=== PATIENT | female | born 1995 | race Caucasian/White ===

== ENCOUNTER → 2019-02-13 12:44 | Outpatient (CLI) | payer OTHER, SELFPAY ==
--- NOTE | 2019-02-13 12:45 | US_ITS ---
PROCEDURE: US OB /MATERNAL DETAIL CLINICAL INDICATION: us ob complete Complete OB ultrasound with anatomy exam COMPARISON: No exams were available for comparison FINDINGS: Single viable intrauterine gestation. Cephalic position. Placenta: Posteriorplacenta grade 1. There is average amount fluid. The cervix appears satisfactory. Closed and measuring 5 cm in length. Complete survey performed and was unremarkable on the submitted images as in PACS. No discrete anomalies identified on survey imaging by technologist. Active fetus. Three-vessel cord with satisfactory umbilical cord insertion. 4- chamber heart noted. Survey of brain & ventricles Unremarkable. Face and neck survey unremarkable. Diaphragm and chest views unremarkable. Abdomen: Both kidneys noted and unremarkable. Stomach noted and satisfactory. Spine: Survey of the spine satisfactory with no anomalies identified nor imaged. Both arms and legs noted. Amniotic Fluid: Adequate. Maternal adnexa: No significant findings. Measurements: Average ultrasound age 21 week. Gestational Age 21 week Estimated due date by ultrasound age 0206/26/2019. Estimated weight 374.4 ggrams. BPD = 21 weeks 6 days OFD = 20 weeks 6 days HC = 20 weeks 3 days AC = 20 weeks 6 days FL = 20 weeks 6 days Growth Percentile= 47 percent% Heart Rate = 138 bpm Cerebellum = 21 weeks 1 day Humerus = 20 weeks 6 days HC/AC is 1.15 CI is 0.85 FL/BPD is 0.66 FL/AC is 0.22 IMPRESSION: Single live intrauterine gestation which is in cephalic presentation with an average ultrasound age of 21 weeks. All parameters correlate with no obvious anomalies. Please see above for detail Dictated by: Justin Dial MD 02/13/2019 18:26 Electronically signed by Justin Dial MD in [place] 02/13/2019 18:26
== END ==
PROVIDERS: PCP General Practice; Visit Provider Nurse Practitioner Obstetrics & Gynecology
DX: Z36.0 Encounter for antenatal screening for chromosomal anomalies (principal)
CPT/HCPCS: 76811

== ENCOUNTER → 2019-04-10 09:07 | Outpatient (CLI) | payer OTHER, SELFPAY ==
[2019-04-10 11:00] LABS: Glucose,Fasting 77 mg/dL (60-105)
[2019-04-10 12:03] LABS: Glucose 1 Hour 131 mg/dL (74-106)
== END ==
PROVIDERS: Visit Provider Nurse Practitioner Obstetrics & Gynecology
DX: Z34.90 Encounter for supervision of normal pregnancy, unspecified, unspecified trimester (principal)
CPT/HCPCS: 36415; 82951

== ENCOUNTER → 2019-05-29 16:30 | Outpatient (CLI) | payer OTHER, SELFPAY | LOC: LAB 16:30 → LAB.DROPOF 05-30 07:58 | PROVIDERS: Visit Provider Nurse Practitioner Obstetrics & Gynecology | DX: Z34.90 Encounter for supervision of normal pregnancy, unspecified, unspecified trimester (principal) | CPT/HCPCS: 86403 ==

== ENCOUNTER → 2019-06-01 09:15 | Outpatient (CLI) | payer OTHER, SELFPAY ==
--- NOTE | 2019-06-01 09:15 | US_ITS ---
PROCEDURE: US OB FOLLOW UP CLINICAL INDICATION: US OB BPP Growth- Breech Evaluate position the COMPARISON: US OB /MATERNAL DETAIL from 02/13/2019 FINDINGS: There is a single live fetus present which is in breech presentation. Cervix appears closed and measures 3 cm transabdominal. The placenta is posterior and grade 2. No previa or abruption. Amniotic fluid index is normal at 15 cm. Biophysical profile is normal 8 of 8. The Average ultrasound age is 36 weeks 1 day. BPD 36 weeks 1 day, OFD 36 weeks 2 days, HC 35 weeks 5 days, AC 36 weeks 4 days, FL 36 weeks 1 day. Heart rate is 127 beats per minute. Estimated weight is 2882 g which is 54th percentile. All parameters correlate. Three-vessel cord is noted. IMPRESSION: Live IUP at 36 weeks 1 day in breech presentation with normal amniotic fluid volume. Biophysical profile 8 of 8. Please see above for detail Dictated by: Justin Dial MD 06/01/2019 13:27 Electronically signed by Justin Dial MD in [place] 06/01/2019 13:27
== END ==
PROVIDERS: PCP General Practice; Visit Provider Nurse Practitioner Obstetrics & Gynecology
DX: O32.1XX0 Maternal care for breech presentation, not applicable or unspecified (principal)
CPT/HCPCS: 76816; 76819

== ENCOUNTER 2019-06-25 04:21 | Inpatient (IN) ==
[2019-06-25 05:09] LABS: Basophils % 0.3 % (0.1-2.0); Eosinophils # 0.2 K/mm3 (0.0-0.4); Eosinophils % 2.4 % (0.1-12.0); Hematocrit 37.9 % (37.0-47.0); Hemoglobin 13.1 g/dL (12.2-16.2); Lymphocytes # 1.9 K/mm3 (0.7-4.5); Lymphocytes % 20.5 % (10-50); Mean Corpuscular HGB Conc 34.5 g/dL (31.8-35.4); Mean Corpuscular Volume 89.6 fl (81-99); Mean Platelet Volume 9.7 fl (7.4-10.4); Monocytes # 0.7 K/mm3 (0.1-1.0); Neutrophils # 6.5 K/mm3 (1.8-7.8); Neutrophils % 69.7 % (37.0-80.0); Platelet Count 203 K/mm3 (142-424); Red Blood Count 4.23 M/mm3 (4.20-5.40); White Blood Count 9.3 K/mm3 (4.8-10.8)
[2019-06-25 05:12] LABS: Microscopic, Urine URINE MICROSCOPIC (MICROSCOPIC)
[2019-06-25 05:15] LABS: Appearance,Urine CLOUDY (Clear); Bilirubin,Urine Negative (Negative); Blood, Urine 3+ (Negative); Color,Urine YELLOW (Yellow); Glucose,Urine (UA) Negative (Negative); Ketones,Urine Negative (Negative); Leukocyte Esterase,Urine Negative (Negative); Protein,Urine TRACE (Negative); Urobilinogen,Urine 0.2 EU/dl (0.2)
[2019-06-25 05:18] LABS: Calcium 9.3 mg/dL (8.5-10.1)
[2019-06-25 05:19] LABS: RBC,Urine 50-100 #/hpf (0-3); Squamous Epithelial Cell,Urine 20-50 #/hpf (0-5); WBC,Urine Occasional #/hpf (0-3)
[2019-06-25 05:21] LABS: Amphetamine/Metha Screen,Urine Negative ng/mL (<1000); Barbiturates Screen,Urine Negative ng/mL (<200); Benzodiazepines Screen,Urine Negative ng/mL (<200); Cannabinoid Screen,Urine Negative ng/mL (<50); Cocaine Screen,Urine Negative ng/mL (<300); Methadone Screen,Urine Negative ng/mL (<300); Opiate Screen,Urine Negative ng/mL (<300); Phencyclidine Screen,Urine Negative ng/mL (<25)
--- NOTE | 2019-06-25 08:19 | Operative Note ---
Date of procedure: 06/25/19 Pre-op Diagnosis:: Term , breech presentation, spontaneous rupture of membranes, thin meconium, Post-op Diagnosis:: Term , breech presentation, spontaneous rupture of membranes, small pedunculated fibroid Procedure performed:: Primary lower segment transverse section and removal of small pedunculated fibroid Surgeon:: Jaret Canseco MD Emergency Vehicle Driver(s):: Jaquelin Pereira AIRCRAFT DELIVERY CHECKER:: Christopher Groves Anesthesia: spinal Estimated blood loss (mL): 600 Clinical Note:: She is a 24-year-old 1 para 0 at 39 and 4 weeks gestational age. She was scheduled for a section this morning for breech presentation. She spontaneously ruptured her membranes at home around 330 this morning and then came into labor and delivery. She was having contractions and was still closed. She had thin meconium. Operative findings:: She delivered a liveborn female child at 7:45 AM on the morning of June 25, 2019. The baby had Apgars of 8 at 1 minute and 9 at 5 minutes. Was in the patricio breech presentation. There was thin meconium. She also had a small 5 mm pedunculated fibroid just below the fundus of the uterus slightly to the right side. Operative note:: She was taken to the operating room where spinal anesthesia was found be adequate. She was prepped and draped in normal sterile fashion in the supine position with a leftward tilt. A Roberts catheter was in the bladder. A Pfannenstiel skin incision was made with knife then carried through to the underlying layer of fascia with cautery. The fascia was opened in the midline with cautery and extended laterally using Massey scissors. [place] clamps were applied to the superior aspect of the fascial incision which was tented up and the underlying rectus muscles dissected off using cautery. The Jonnathan clamps were then applied to the inferior aspect of the fascial incision which in a similar fashion was tented up and the underlying rectus muscles dissected off using cautery. The rectus muscles were then in the midline, the peritoneum identified, and entered sharply with Metzenbaum scissors. This incision was then extended superiorly and inferiorly with cautery. We had good visualization of the bladder inferiorly. The bladder peritoneum was then opened in the midline and extended laterally using Metzenbaum scissors. A bladder flap was created digitally. Transverse incision was made through the uterine muscle to the amnion. This incision was then extended laterally using fingers traction. The amnion was entered sharply with knife. There was clear amniotic fluid. The infant's breech was then delivered atraumatically. This was followed by the shoulders and the rest of the 's body atraumatically. The oropharynx and nasopharynx were DeLee suctioned. The infant was then handed off to Dr. Mayfield who assigned Apgars of 8 at 1 minute and 9 at 5 minutes. We then obtained cord blood as well as cord pH. Using gentle traction on the cord and countertraction on the fundus I was able to easily deliver the placenta intact. It had a normal three-vessel cord. The uterus was then cleared of clots and debris . The uterine incision was then closed using running 0 Vicryl suture in a locked fashion. A second layer of the same suture was used to imbricate the first layer. The bladder peritoneum was then closed using running 2-0 Vicryl suture in a locked fashion. The gutters and cul-de-sac were then cleared of clots and debris . Once again hemostasis was assured. It was noted that there was a small pedunculated fibroid on the fundus of the uterus slightly to the right side and using cautery I was able to remove this easily across the base. This was sent to pathology. The uterus was then returned to the abdominal cavity. Once again hemostasis was assured. The peritoneum was grasped with Rachel clamps and closed using running 2-0 Vicryl suture. The rectus muscles were then reapproximated using running 0 Vicryl suture. The fascia was closed using running #1 Vicryl suture. The subcutaneous tissues were then irrigated with warm water followed by closure Galo's fascia using running 2-0 Monocryl suture. The skin was closed with duke. I then cleaned the skin with Hibiclens. Sterile dressings were applied. She tolerated the procedure well and was taken to the recovery room in excellent condition. All sponges minute and needle counts were correct. Estimate a blood loss was approximately 600 mL. Condition: stable Disposition: PACU Specimens:: Small pedunculated fibroid Complications:: None
--- NOTE | 2019-06-25 08:22 | Progress Note ---
[facility] [place] Anesthesia Checklist - Structural Data Admitted From: Inpatient Planned Operative Procedure/s: c/section Consent for Planned Operative Procedure(s) Verified: Yes - Airway Assessment C-Spine Mobility Assessed: Yes TMJ Mobility Assessed: Yes Dentition: Good Dentition - Neurological Assessment Level of Consciousness: Awake, Alert, Appropriate - Anesthesia Plan Anesthesia Risk discussed: Yes Anesthesia Plan: Verified ASA Class: II Anesthesia Type: Spinal [facility] [place] History I have reviewed the patient's past medical history: Yes *Have you ever received a pneumonia vaccine?: No *Have you received a flu vaccine this season?: Yes Anesthesia experience/problems:: none Other Surgeries: Yes: No Previous Surgery. No: Amputation: No Fractures: No - *Social History Smoking Status: Never smoker Alcohol Intake: never Alcohol Intake Frequency:: holidays/special occasions only Substance Use Type: denies use *Occupational Status:: employed *Travel in the last 8 weeks: None Family Hx:: No significant family history Para: 0
--- NOTE | 2019-06-25 08:22 | History & Physical Report ---
OB - H&P: HPI Antepartum - History of Present Illness Chief complaint: Breech presentation, term, spontaneous rupture of membranes History of present illness: She is a 24-year-old 1 now para 0 at 39+4 weeks gestational age. She is known to be breech presentation. She ruptured membranes this morning about 330 and came into labor and delivery. She has been scheduled for a primary section this morning. - History of Present Criteria for establishing EDC:: LMP confirmed by 1st trimester US care: good care Ultrasounds: normal 1st trimester US, normal mid trimester US Obstetrical complications: malpresentation Medical complications: none - Labs Blood type: A (+) positive Rubella: immune RPR/VDRL: nonreactive GBS status: negative HBsAG: negative HMH History I have reviewed the patient's past medical history: Yes *Have you ever received a pneumonia vaccine?: No *Have you received a flu vaccine this season?: Yes Other Surgeries: Yes: No Previous Surgery. No: Amputation: No Fractures: No - *Social History Smoking Status: Never smoker Alcohol Intake: never Alcohol Intake Frequency:: holidays/special occasions only Substance Use Type: denies use *Occupational Status:: employed *Travel in the last 8 weeks: None Family Hx:: No significant family history Para: 0 Review of Systems - Review of Systems Review of systems:: pertinent systems reviewed and negative unless documented below Meds Home Medications Medication Instructions Recorded Confirmed Type loratadine 10 mg tablet 10 mg PO DAILY 01/17/19 06/25/19 History vits 75-iron 28 mg-folic 1 tab PO DAILY each 01/17/19 06/25/19 History acid 800 mcg-omega-3 oral combo pack RX: Ferrous Sulfate 325 mg PO DAILY 06/25/19 06/25/19 History Allergies Allergy/AdvReac Type Severity Reaction Status Date / Time Sulfa (Sulfonamide Allergy Unknown Verified 06/18/19 10:50 Antibiotics) OB - H&P: Exam - Physical Exam Vital signs: Temp Pulse Resp BP Pulse Ox 98.7 F 103 H 18 136/90 97 06/25/19 04:24 06/25/19 04:24 06/25/19 04:24 06/25/19 04:24 06/25/19 04:24 - Constitutional no acute distress - Routine HEENT Exam Head: Present: normocephalic Eye: Present: EOMI, PERRL ENT: Present: mucous membranes moist - Routine Neck Exam Present: supple, full ROM - Routine Respiratory Exam Absent: accessory muscle use (good air entry bilaterally), respiratory distress, wheezes, crackles - Routine Cardiovascular Exam Present: RRR. Absent: murmur - Routine Abdominal Exam Present: soft, normoactive bowel sounds. Absent: tenderness, distended, guarding - Routine Rectal Exam Patient deferred: visual exam, digital exam - Routine Exam Patient deferred: external exam, groin exam, perineal exam - Routine Extremities Exam Present: full ROM. Absent: cyanosis, edema - Routine Skin Exam Present: intact. Absent: cyanosis - Routine Neurological Exam Present: alert, oriented X3 - Routine Psychiatric Exam Present: normal affect OB - Results - Labs Labs: Short CBC 06/25/19 Range/Units 05:00 WBC 9.3 (4.8-10.8) K/mm3 Hgb 13.1 (12.2-16.2) g/dL Hct 37.9 (37.0-47.0) % Plt Count 203 (142-424) K/mm3 BMP 06/25/19 05:00 Sodium 138 Potassium 4.0 Chloride 103 Carbon Dioxide 21 BUN 7 Creatinine 0.78 Glucose 85 Calcium 9.3 Urine 06/25/19 Range/Units 04:30 Urine Color Yellow (Yellow) Urine Appearance Cloudy (Clear) Urine pH 7.0 (5.0-8.5) Ur Specific [place] 1.020 (1.005-1.030) Urine Protein Trace (Negative) Urine Glucose (UA) Negative (Negative) OB - A/P Antepartum (1) Breech presentation delivered Current visit: Yes Status: Acute (2) SROM (spontaneous rupture of membranes) Current visit: Yes Status: Acute - Additional Plan Planning to breastfeed?: No Plan: other Additional Information:: She is here with spontaneous rupture of membranes and a few contractions. She was scheduled for a section this morning. She will have a primary lower segment transverse section.
--- NOTE | 2019-06-25 08:23 | Progress Note ---
[facility] Anesthesia Record Part I Intake, IV Amount: 1,500 Estimated blood loss (mL): 600 Urine output (mL): 750 Blood Pressure: 119/81 SaO2: 99 Pulse Rate: 108 Respiratory Rate: 12 Temperature: 97.7 F Patient is:: Awake, Stable Stable to PACU at:: 08:15
--- NOTE | 2019-06-25 09:26 | Progress Note ---
[facility] Anesthesia Record Part II Discharge Time: 08:45 Destination: Obstetric PACU nurse assessment reviewed?: Yes Patient Condition:: Good Anesthesia Complications:: None Swallowing reflex intact?: Yes Cyanosis?: No Blood Pressure: 134/64 Pulse Rate: 103 Temperature: 97.7 F Mental Status: Alert & Oriented Pain level:: 0 Nausea and/or vomitting:: None Intake, IV Amount: 1,600
[2019-06-26 04:15] VITALS: BP 144/94
[2019-06-26 06:54] LABS: Hematocrit 35.6 % (37.0-47.0); Hemoglobin 11.6 g/dL (12.2-16.2)
--- NOTE | 2019-06-26 07:32 | Pharmacy Consult Notes ---
[facility] Pharmacy VTE Monitoring - Patient Demographics Admission date: 06/25/19 Report Date: 06/26/19 Time: 07:32 Allergies/Adverse Reactions: Patient Allergies Sulfa (Sulfonamide Antibiotics) Allergy (Unknown, Verified 06/25/19 12:18) Height: 1.6 m Weight: 75.75 kg Patient Problems: Current Active Problems Breech presentation delivered (Acute) SROM (spontaneous rupture of membranes) (Acute) - VTE Risk Labs: VTE Related Lab Results Hgb 11.6 g/dL (12.2-16.2) L 06/26/19 06:35 Hct 35.6 % (37.0-47.0) L 06/26/19 06:35 Plt Count 203 K/mm3 (142-424) 06/25/19 05:00 BUN 7 mg/dL (7-18) 06/25/19 05:00 Creatinine 0.78 mg/dL (0.55-1.02) 06/25/19 05:00 Estimated Creat Clear 132 mL/min (50-200) 06/25/19 05:00 - Prophylaxis VTE Prophylaxis Ordered?: Yes Types of VTE Prophylaxis: IPCS Thigh High Location of Applied Device: Bilateral Lower Extremeties - VTE Diagnosis Confirmed Treatment or plan recommended: Continue Current Treatment
--- NOTE | 2019-06-26 08:55 | Progress Note ---
Internal Medicine - PN: Subj *Date: 06/26/19 *Time: 08:53 Interval history: She continues to do well this morning. She is eating and drinking and ambulating. She is bottlefeeding. Her lochia is normal. Her pain is well controlled. Exam Vital signs and Labs for Last 24 Hours: Temp Pulse Resp BP Pulse Ox 98.1 F 83 20 144/94 H 98 06/26/19 04:00 06/26/19 04:00 06/26/19 04:00 06/26/19 04:00 06/26/19 04:00 Laboratory Results - last 24 hr 06/26/19 06:35: Hgb 11.6 L, Hct 35.6 L I & O for Last 24 hours: Intake & Output 06/23/19 06/24/19 06/25/19 06/26/19 11:59 11:59 11:59 11:59 Intake Total 3100 / 3100 Output Total 350 / 350 1000 / 1000 Balance 2750 / 2750 -1000 / -1000 Weight 167 lb - Constitutional no acute distress Assessment and Plan (1) Breech presentation delivered Current visit: Yes Status: Acute Category: Medical Code(s): O32.1XX0 - Maternal care for breech presentation, not applicable or unspecified (2) SROM (spontaneous rupture of membranes) Current visit: Yes Status: Acute Category: Medical - Assessment and plan all Dx Assessment and Plan for all problems:: She is doing well 1 day postoperatively from a for breech presentation. We will plan to send her home in 48 hours.
--- NOTE | 2019-06-27 09:22 | Progress Note ---
Internal Medicine - PN: Subj *Date: 06/27/19 *Time: 09:21 Interval history: She is doing very well this morning. Her pain is well controlled. Her lochia is normal. Exam Vital signs and Labs for Last 24 Hours: Temp Pulse Resp BP Pulse Ox 98.1 F 83 20 144/94 H 98 06/26/19 04:00 06/26/19 04:00 06/26/19 04:00 06/26/19 04:00 06/26/19 04:00 I & O for Last 24 hours: Intake & Output 06/24/19 06/25/19 06/26/19 06/27/19 11:59 11:59 11:59 11:59 Intake Total 3100 / 3100 Output Total 350 / 350 1000 / 1000 Balance 2750 / 2750 -1000 / -1000 Weight 167 lb - Constitutional no acute distress - *Routine HEENT Exam Head: Present: normocephalic Eye: Present: EOMI, PERRL ENT: Present: mucous membranes moist Assessment and Plan (1) Breech presentation delivered Current visit: Yes Status: Acute Category: Medical Code(s): O32.1XX0 - Maternal care for breech presentation, not applicable or unspecified (2) SROM (spontaneous rupture of membranes) Current visit: Yes Status: Acute Category: Medical - Assessment and plan all Dx Assessment and Plan for all problems:: She is doing very well. We will plan to send her home tomorrow.
[2019-06-27 23:59] LABS: Basophils % 0.4 % (0.1-2.0); Eosinophils # 0.4 K/mm3 (0.0-0.4); Hematocrit 37.4 % (37.0-47.0); Hemoglobin 12.7 g/dL (12.2-16.2); Lymphocytes # 2.7 K/mm3 (0.7-4.5); Lymphocytes % 30.6 % (10-50); Mean Corpuscular HGB Conc 33.9 g/dL (31.8-35.4); Mean Corpuscular Volume 90.5 fl (81-99); Mean Platelet Volume 8.9 fl (7.4-10.4); Monocytes # 0.5 K/mm3 (0.1-1.0); Monocytes % 5.6 % (1.7-9.3); Neutrophils # 5.2 K/mm3 (1.8-7.8); Neutrophils % 58.5 % (37.0-80.0); Platelet Count 252 K/mm3 (142-424); Red Blood Count 4.13 M/mm3 (4.20-5.40); Red Cell Distribution Width 13.8 % (11.5-17.5); White Blood Count 8.8 K/mm3 (4.8-10.8)
[2019-06-28 00:12] LABS: Activated Partial Thrombo Time 31.4 seconds (23.6-34.0); INR 0.87 (0.9-1.1); Prothrombin Time 9.1 seconds (9.4-11.8)
[2019-06-28 00:15] LABS: Anion Gap 12.8 mEq/L (5-15); Calcium 8.9 mg/dL (8.5-10.1); Uric Acid 4.4 mg/dL (2.6-7.2)
--- NOTE | 2019-06-28 09:05 | Discharge Summary ---
General - General Admission date:: 06/25/19 Discharge date: 06/28/19 HPI HPI: She is a 24-year-old 1 now para 1 who is 39 and 4 weeks gestational age. She had a breech presentation at term and as result of that was offered primary lower segment transverse section. Hospital Course Hospital Course: On June 25, 2019 she underwent a primary lower segment transverse section and delivered a liveborn female child at 7:45 AM. The baby weighed 7 pounds 10 ounces and had Apgars of 8 at 1 minute and 9 at 5 minutes. She has done well postoperatively and has remained afebrile with her hospitalization. On the evening prior to discharge she did have a spike in her blood pressure and we have started her on labetalol. On the morning of discharge her blood pressure has stabilized and she denies any headache, scotomata or epigastric pain. Her [facility] blood work was all normal. Hemoglobin has stabilized. She is discharged home to follow-up with me in approximately a week's time. She will continue with her vitamins and iron. She will continue with her labetalol 200 mg twice daily. She is given a prescription for Percocet 5/325 number 20 tablets. She is bottlefeeding. She has a Rh+ blood, she is rubella immune and was group B streptococcus negative. Her spinning mule tender Dr. Mayfield. Rhogam Administration: Not Indicated Objective Vital signs: Temp Pulse Resp BP Pulse Ox 98.1 F 83 20 144/94 H 98 06/26/19 04:00 06/26/19 04:00 06/26/19 04:00 06/26/19 04:00 06/26/19 04:00 no acute distress Results Labs on day of discharge: Labs from last 24 hours 06/27/19 06/27/19 06/27/19 23:50 23:50 23:50 WBC 8.8 RBC 4.13 L Hgb 12.7 Hct 37.4 MCV 90.5 MCH 30.7 MCHC 33.9 RDW 13.8 Plt Count 252 MPV 8.9 Neut % (Auto) 58.5 Lymph % (Auto) 30.6 Burke % (Auto) 5.6 Eos % (Auto) 5.0 Baso % (Auto) 0.4 Neut # (Auto) 5.2 Lymph # (Auto) 2.7 Burke # (Auto) 0.5 Eos # (Auto) 0.4 Baso # (Auto) 0.0 PT 9.1 L INR 0.87 L APTT 31.4 Fibrinogen 484 D-Dimer 689 H* Sodium 139 Potassium 3.8 Chloride 103 Carbon Dioxide 27 D Anion Gap 12.8 BUN 8 Creatinine 0.68 Estimated Creat Clear 151 Estimated GFR 105 Est GFR ( Amer) 128 Glucose 86 Uric Acid 4.4 Calcium 8.9 AST 25 ALT 18 DS: Diagnosis - Discharge Diagnosis (1) Breech presentation delivered Status: Acute (2) SROM (spontaneous rupture of membranes) Status: Acute (3) induced hypertension, delivered, with complication Status: Acute Discharge Plan - Patient Discharge Instructions ACTIVITY: No heavy lifting DIET: continue same diet Patient Instructions: DI for Hemorrhage, DI for , DI for Depression - Follow up Plan Follow up with: Jaret Canseco MD [Staff Physician] - 07/09/19 1:30 pm Disposition: Home, Self-Halfway Medications: Home Medications Medication Instructions Recorded Confirmed Type loratadine 10 mg tablet 10 mg PO DAILY 01/17/19 06/25/19 History vits 75-iron 28 mg-folic 1 tab PO DAILY each 01/17/19 06/25/19 History acid 800 mcg-omega-3 oral combo pack Ferrous Sulfate 325 mg PO DAILY 06/25/19 06/25/19 History Labetalol HCl [Normodyne 100mg 200 mg PO BID #60 tab 06/28/19 Rx tablet] Oxycodone HCl/Acetaminophen 1 - 2 tab PO Q4-6H PRN #20 tablet 06/28/19 Rx [Percocet 5/325mg tablet] Prescriptions/Medication Reconciliation: New Oxycodone HCl/Acetaminophen [Percocet 5/325mg tablet] 1 - 2 tab PO Q4-6H PRN #20 tablet PRN Reason: Severe Pain Labetalol HCl [Normodyne 100mg tablet] 200 mg PO BID #60 tab Continued vits 75-iron 28 mg-folic acid 800 mcg-omega-3 oral combo pack 1 tab PO DAILY each loratadine 10 mg tablet 10 mg PO DAILY Ferrous Sulfate 325 mg PO DAILY - Problem Reconciliation Problems Reviewed?: Yes
== END 2019-06-28 16:15 | disposition home or self-care (01) | DRG 788 ==
LOC: OB 04:21
PROVIDERS: ADMIT Nurse Practitioner Obstetrics & Gynecology; ATTEND Nurse Practitioner Obstetrics & Gynecology

== ENCOUNTER → 2020-09-18 08:40 | Outpatient (CLI) | payer OTHER, SELFPAY ==
--- NOTE | 2020-09-18 08:40 | US_ITS ---
PROCEDURE: US THYROID CLINICAL INDICATION: thyromegly COMPARISON: No exams were available for comparison FINDINGS: Right lobe: 4 x 1 x 1.9 cm. Homogeneous echogenicity Left lobe: 4.2 x 1.1 x 1.8 cm. Homogeneous echogenicity Isthmus: 2 mm in thickness Additional findings: No nodules apparent. IMPRESSION: Unremarkable thyroid ultrasound Dictated by: Justin Dial MD 09/18/2020 10:24 Justin Dial MD in [place] 09/18/2020 10:24
== END ==
PROVIDERS: PCP Internal Medicine; Visit Provider Otolaryngology
DX: E01.0 Iodine-deficiency related diffuse (endemic) goiter (principal)
CPT/HCPCS: 76536

== ENCOUNTER → 2020-09-18 08:56 | Outpatient (CLI) | payer OTHER, SELFPAY ==
[2020-09-18 10:15] LABS: Free T4 (Free Thyroxine) 1.18 ng/dl (0.78-2.19)
[2020-09-18 10:29] LABS: Thyroid Stimulating Hormone 1.56 uIU/mL (0.465-4.68)
[2020-09-19 10:13] LABS: Thyroid Peroxidase Antibodies <9 IU/mL (0-34)
[2020-09-21 06:35] LABS: Thyroid Stimulating Immunoglob <0.10 IU/L (0.00-0.55)
== END ==
PROVIDERS: Visit Provider Otolaryngology
DX: E01.0 Iodine-deficiency related diffuse (endemic) goiter (principal)
CPT/HCPCS: 36415; 84439; 84443; 84445; 86376

== ENCOUNTER → 2022-12-06 10:36 | Outpatient (CLI) | payer OTHER, SELFPAY ==
--- NOTE | 2022-12-06 10:36 | US_ITS ---
PROCEDURE: US TRANSVAGINAL CLINICAL INDICATION: irregular periods/ menstrual cycles COMPARISON: No exams were available for comparison FINDINGS: Transvaginal sonographic images of the pelvis were obtained. UTERUS: 9cm x 5cmx 4cm with a combined endometrial thickness of 9.7mm. There are 2 fibroids in the anterior uterus. Fibroid 1 measures 0.8 cm x 0.8 cmx 0.8 cm Fibroid 2 measures 1.4 cm x 1.4 cm x 1.4 cm LEFT OVARY: 5hvl2xhn2.1cm with a volume of 12.5ml.The left ovary has a polycystic appearance. RIGHT OVARY: 2.9 cmx 4cmx2.8 cm. The right ovary has a polycystic appearance. There is a 2.0 cm x 2.3 cm x 1.4 cm follicle. Both ovaries are seen and appear normal. Doppler flow to both ovaries are seen. There is trace fluid in the cul-de-sac. IMPRESSION: 1. Anteverted uterus that is normal in shape and size. There is a scar. 2. Within the anterior myometrium there are 2 fibroids measuring 0.8 cm and 1.4 cm. The larger fibroid appears more submucosal. 3. Both ovaries have a polycystic appearance. 4. At the vaginal vault there is a Orlin's duct cyst measuring 0.8 cm x 2.0 cm by 1.9 cm 5. There is trace fluid in the cul-de-sac. Dictated by: Jaret Canseco MD 12/06/2022 16:04 Jaret Canseco MD in [place] 12/06/2022 16:04
== END ==
PROVIDERS: PCP Nurse Practitioner Obstetrics & Gynecology; Visit Provider Nurse Practitioner Obstetrics & Gynecology
DX: N92.6 Irregular menstruation, unspecified (principal)
CPT/HCPCS: 76830

== ENCOUNTER 2023-08-08 11:33 | Outpatient (CLI) | payer OTHER, SELFPAY ==
[2023-08-08 13:29] LABS: HCG,Quantitative 81 mIU/ml (0-5.42)
[2023-08-09 08:56] LABS: Progesterone 18.5 ng/mL (.)
== END 2023-08-08 23:59 ==
LOC: LAB 11:34
PROVIDERS: PCP Nurse Practitioner Family; Visit Provider Nurse Practitioner Obstetrics & Gynecology
DX: N92.6 Irregular menstruation, unspecified (principal)
CPT/HCPCS: 36415; 84144; 84702

== ENCOUNTER 2023-08-10 09:28 | Outpatient (CLI) | payer OTHER, SELFPAY ==
[2023-08-10 13:29] LABS: HCG,Quantitative 231 mIU/ml (0-5.42)
== END 2023-08-10 23:59 ==
LOC: LAB 09:28
PROVIDERS: PCP Nurse Practitioner Family; Visit Provider Nurse Practitioner Obstetrics & Gynecology
DX: Z32.00 Encounter for pregnancy test, result unknown (principal)
CPT/HCPCS: 36415; 84702

== ENCOUNTER 2023-08-31 15:26 | Outpatient (CLI) | payer OTHER, SELFPAY ==
[2023-08-31 16:08] LABS: Basophils % 0.5 % (0.1-2.0); Eosinophils # 0.2 K/mm3 (0.0-0.4); Eosinophils % 2.2 % (0.1-12.0); Hemoglobin 11.5 g/dL (12.2-16.2); Lymphocytes # 2.2 K/mm3 (0.7-4.5); Lymphocytes % 24.4 % (10-50); Mean Corpuscular HGB Conc 32.1 g/dL (31.8-35.4); Mean Corpuscular Hemoglobin 28.1 pg (27.0-31.2); Mean Corpuscular Volume 87.5 fl (81-99); Monocytes # 0.5 K/mm3 (0.1-1.0); Monocytes % 5.8 % (1.7-9.3); Neutrophils # 6.2 K/mm3 (1.8-7.8); Neutrophils % 67.1 % (37.0-80.0); Platelet Count 312 K/mm3 (142-424); Red Blood Count 4.11 M/mm3 (4.20-5.40); Red Cell Distribution Width 14.6 % (11.5-17.5); White Blood Count 9.2 K/mm3 (4.8-10.8)
[2023-09-02 10:51] LABS: Rubella Antibodies, IgG 1.95 index (Immune >0.99)
[2023-09-02 11:17] LABS: HIV Screen 4th Generation wRfx Non Reactive (Non Reactive); Rapid Plasma Reagin Ab Titer Non Reactive titer (NonRea<1:1)
[2023-09-06 09:26] LABS: Hepatitis B Surface Antigen Negative; Hepatitis C Antibody Non Reactive
== END 2023-08-31 23:59 | disposition home or self-care (01) ==
LOC: LAB 15:28
PROVIDERS: PCP Nurse Practitioner Family; Visit Provider Nurse Practitioner Obstetrics & Gynecology
DX: O26.891 Other specified pregnancy related conditions, first trimester (principal); Z3A.01 Less than 8 weeks gestation of pregnancy
CPT/HCPCS: 36415; 85025; 86593; 86703; 86762; 86850; 87340; 87380; G0432

== ENCOUNTER 2023-09-16 09:38 | Outpatient (CLI) | payer OTHER, SELFPAY ==
[2023-09-26 19:42] LABS: Pancreatic Elastase, Fecal 316 (>200)
[2023-09-26 21:07] LABS: Fats, Neutral Increased (.); Fats, Total Increased (.)
== END 2023-09-16 23:59 | disposition home or self-care (01) ==
LOC: LAB.DROPOF 09:38
PROVIDERS: PCP Nurse Practitioner Family; Visit Provider Physician Assistant
DX: E74.89 Other specified disorders of carbohydrate metabolism (principal)
CPT/HCPCS: 82656; 82705

== ENCOUNTER 2023-09-28 17:20 | Outpatient (CLI) | payer OTHER, SELFPAY | END 2023-09-28 23:59 | disposition home or self-care (01) | LOC: LAB.DROPOF 17:21 | PROVIDERS: PCP Nurse Practitioner Obstetrics & Gynecology; Visit Provider Nurse Practitioner Obstetrics & Gynecology | DX: O26.891 Other specified pregnancy related conditions, first trimester (principal); Z3A.11 11 weeks gestation of pregnancy | CPT/HCPCS: 87086 ==

== ENCOUNTER 2023-12-01 09:47 | Outpatient (CLI) | payer OTHER, SELFPAY ==
--- NOTE | 2023-12-01 09:47 | US_ITS ---
PROCEDURE: US OB /MATERNAL DETAIL CLINICAL INDICATION: 20 wk + Anatomy Scan COMPARISON: No examinations are available for comparison. FINDINGS: Transabdominal sonographic images of the pelvis were obtained. From her established due date she is . Single viable intrauterine gestation. Breech position. Placenta: Anteriorplacenta grade 1. There is an average amount of fluid. The cervix appears satisfactory. Closed and measuring 3.7 cm. In length. Complete survey performed and was unremarkable on the submitted images as in PACS. No discrete anomalies identified on survey imaging by technologist. Active fetus. Three-vessel cord with satisfactory umbilical cord insertion. 4- chamber heart noted. Situs, aortic arch, LVOT, RVOT, three-vessel view appear normal. Survey of brain & ventricles Unremarkable. Cerebellum, thalamus, choroid plexus, cisterna magna appear normal. Face and neck survey unremarkable. Profile, nasion, lips and nose appeared normal. Diaphragm and chest views unremarkable. Abdomen: Both kidneys noted and unremarkable. Stomach and bladder noted and satisfactory. Spine: Survey of the spine satisfactory with no anomalies identified nor imaged. Cervical, thoracic, lower spine appear normal. Both arms and legs noted. Amniotic Fluid: Adequate. MVP 5.47 cm. Measurements: Average ultrasound age 20weeks 5days. Estimated due date by ultrasound age 1104/14/2024. Estimated weight 364g BPD = 20weeks 3days HC = 21weeks 1day AC = 20weeks 3days FL = 20weeks 6days Growth Percentile= 55 Heart Rate = 152bpm Cerebellum = 20weeks 1day Humerus = 21weeks 5days HC/AC is 1.24 FL/BPD is 0.72 FL/AC is 0.23 IMPRESSION: 1. Viable fetus in the breech presentation with an anterior placenta grade 1. 2. The fluid is within normal limits with an MVP 5.47 cm. 3. Anatomical scan appears normal. 4. biometry is consistent with the dates. 5. There was a slowing of the heart rate at the end of the examination. Dictated by: Jaret Canseco MD 12/01/2023 12:57 Jaret Canseco MD in [place] 12/01/2023 12:57
== END 2023-12-01 23:59 | disposition home or self-care (01) ==
LOC: RAD 09:47
PROVIDERS: PCP Nurse Practitioner Family; Visit Provider Nurse Practitioner Obstetrics & Gynecology
DX: Z36.3 Encounter for antenatal screening for malformations (principal); Z3A.20 20 weeks gestation of pregnancy
CPT/HCPCS: 76811

== ENCOUNTER 2023-12-31 10:50 | Outpatient (CLI) | payer OTHER, SELFPAY ==
[2023-12-31 11:08] LABS: Collection Time,Urine 24 hours; Total Volume,Urine 600 mL (600-1600)
[2023-12-31 11:12] VITALS: BMI 31.8
[2023-12-31 11:20] LABS: Basophils % 0.4 % (0.1-2.0); Eosinophils # 0.2 K/mm3 (0.0-0.4); Eosinophils % 2.4 % (0.1-12.0); Hematocrit 32.7 % (37.0-47.0); Hemoglobin 10.8 g/dL (12.2-16.2); Lymphocytes # 1.8 K/mm3 (0.7-4.5); Lymphocytes % 20.5 % (10-50); Mean Corpuscular Hemoglobin 29.6 pg (27.0-31.2); Mean Corpuscular Volume 89.5 fl (81-99); Mean Platelet Volume 8.7 fl (7.4-10.4); Monocytes # 0.4 K/mm3 (0.1-1.0); Monocytes % 3.9 % (1.7-9.3); Neutrophils # 6.5 K/mm3 (1.8-7.8); Neutrophils % 72.8 % (37.0-80.0); Platelet Count 316 K/mm3 (142-424); Red Blood Count 3.65 M/mm3 (4.20-5.40); Red Cell Distribution Width 17.3 % (11.5-17.5); White Blood Count 8.9 K/mm3 (4.8-10.8)
[2023-12-31 11:22] VITALS: BP 122/75; PULSE 89; RESP 16; TEMP 36.9; O2SAT 96; BMI 31.8
[2023-12-31 11:29] LABS: Patient Height,Urine 62 inches; Patient Weight,Urine 179.6234 lbs
[2023-12-31 11:30] LABS: Total Protein 24 Hour,Urine 30 mg/24 hr (40-90); Total Protein,Urine Random < 5.0 mg/dL (0.0-12.0)
[2023-12-31 11:39] LABS: Activated Partial Thrombo Time 27.5 seconds (22.8-30.6); Fibrinogen 471 mg/dL (229.9-363.5); Prothrombin Time 10.2 seconds (10.1-12.5)
[2023-12-31 12:34] LABS: Chloride 106 mmol/L (98-107); Potassium 4.3 mmoL/L (3.5-5.1); Sodium 135 mmol/L (136-145)
[2023-12-31 12:37] LABS: Alanine Aminotransferase 16 U/L (12-78); Anion Gap 11.3 mEq/L (5-15); Aspartate Amino Transferase 21 U/L (14-36); Blood Urea Nitrogen 5 mg/dl (7-17); Calcium 8.9 mg/dl (8.4-10.2); Carbon Dioxide 22 mmol/L (22.0-30.0); Creatinine Clearance Estimated 214 mL/min (50-200); Estimated Glomerular Filt Rate 146 ml/min (>60); GFR (African American) 177 ML/MIN (>60); Glucose 115 mg/dl (74-100)
[2023-12-31 12:54] LABS: Creatinine 24 Hour,Urine 504 mg/24hr (630-2500); Creatinine Clearance Urine 66.5 mL/min (25-115); Creatinine,Urine Random 84 mg/dL (Not Estab.)
[2023-12-31 13:04] LABS: Uric Acid 3.3 mg/dl (2.5-6.2)
[2024-01-01 09:39] LABS: Rapid Plasma Reagin Ab Titer Non Reactive titer (NonRea<1:1)
== END 2023-12-31 12:23 | disposition home or self-care (01) ==
LOC: LAB 11:09 → OB 11:09
PROVIDERS: PCP Nurse Practitioner Family; Visit Provider Nurse Practitioner Obstetrics & Gynecology
DX: Z34.90 Encounter for supervision of normal pregnancy, unspecified, unspecified trimester (principal)
CPT/HCPCS: 36415; 80048; 82575; 84155; 84450; 84460; 84550; 85025; 85384; 85610; 85730; 86593; G0463

== ENCOUNTER 2024-01-25 09:13 | Outpatient (CLI) | payer OTHER, SELFPAY ==
[2024-01-25 09:41] LABS: Basophils # 0.1 K/mm3 (0-0.2); Basophils % 0.5 % (0.1-2.0); Eosinophils # 0.2 K/mm3 (0.0-0.4); Eosinophils % 1.9 % (0.1-12.0); Hematocrit 35.9 % (37.0-47.0); Lymphocytes # 1.9 K/mm3 (0.7-4.5); Lymphocytes % 19.5 % (10-50); Mean Corpuscular HGB Conc 30.7 g/dL (31.8-35.4); Mean Corpuscular Hemoglobin 27.2 pg (27.0-31.2); Mean Corpuscular Volume 88.6 fl (81-99); Mean Platelet Volume 8.2 fl (7.4-10.4); Monocytes # 0.5 K/mm3 (0.1-1.0); Monocytes % 5.2 % (1.7-9.3); Neutrophils # 7.2 K/mm3 (1.8-7.8); Neutrophils % 72.9 % (37.0-80.0); Platelet Count 313 K/mm3 (142-424); Red Blood Count 4.06 M/mm3 (4.20-5.40); Red Cell Distribution Width 17.4 % (11.5-17.5); White Blood Count 9.9 K/mm3 (4.8-10.8)
[2024-01-25 10:13] LABS: Glucose,Fasting 90 mg/dl (74-100)
[2024-01-25 10:56] LABS: Glucose 1 Hour 159 mg/dL (74-100)
[2024-01-26 14:13] LABS: Rapid Plasma Reagin Ab Titer Non Reactive titer (NonRea<1:1)
== END 2024-01-25 23:59 | disposition home or self-care (01) ==
PROVIDERS: PCP Nurse Practitioner Family; Visit Provider Nurse Practitioner Obstetrics & Gynecology
DX: Z34.90 Encounter for supervision of normal pregnancy, unspecified, unspecified trimester (principal)
CPT/HCPCS: 36415; 82951; 85025; 86593

== ENCOUNTER 2024-02-04 09:06 | Outpatient (CLI) | payer OTHER, SELFPAY ==
[2024-02-04 10:00] LABS: Glucose,Fasting 92 mg/dl (74-100)
[2024-02-04 11:04] LABS: Glucose 1 Hour 194 mg/dL (74-100)
[2024-02-04 12:30] LABS: Glucose 2 Hour 176 mg/dL (74-100)
[2024-02-04 14:17] LABS: Glucose 3 Hour 176 mg/dL (74-100)
== END 2024-02-04 23:59 | disposition home or self-care (01) ==
LOC: LAB 09:07
PROVIDERS: PCP Nurse Practitioner Family; Visit Provider Nurse Practitioner Obstetrics & Gynecology
DX: Z34.90 Encounter for supervision of normal pregnancy, unspecified, unspecified trimester (principal)
CPT/HCPCS: 36415; 82951

== ENCOUNTER 2024-03-20 12:57 | Outpatient (CLI) | payer OTHER, SELFPAY ==
--- NOTE | 2024-03-20 13:00 | US_ITS ---
PROCEDURE: US OB BIOPHYSICAL PROFILE CLINICAL INDICATION: SGA COMPARISON: US US OB /MATERNAL DETAIL from 12/01/2023 FINDINGS: Transabdominal sonographic images of the uterus were obtained. From her established due date she is 36weeks 1day. The following parameters are obtained: Viable Fetus in the cephalic presentation with an anterior placenta grade 2. Average ultrasound age is 37weeks 3days Estimated weight 3,186g, 7 lb 0 oz The cervix measures 4.3 cm. Measurements: heart Rate = 136bpm BPD = 37weeks 3days, 88 percentile HC = 38weeks 2days, 72 percentile AC = 37weeks 5days, 92 percentile FL = 36weeks 2days, 48 percentile HC/AC is 0.99 FL/BPD is 0.77 FL/AC is 0.21 83 percentile Amniotic fluid index: 14.88cm, MVP 5.55 cm Qualitative AFV:2 Breathing movements: 2 Gross Body Movements: 2 Tone: 2 Biophysical profile score: 8 Doppler evaluation of the umbilical artery: SD ratio: 2.28-3.03 (normal 2.39-3.41 ) Resistive index: 0.67 No obvious anomalies evident.Kidneys, profile, bladder, stomach, four-chamber heart, three-vessel cord appear normal. IMPRESSION: 1. Viable fetus in the cephalic presentation with an anterior placenta grade 2. 2. The fluid is within normal limits with an amniotic fluid index 14.8 cm, MVP 5.55 cm. 3. Biophysical profile is 8/8 with good breathing movement and movement seen. 4. SD ratio is normal 2.2 8-3.03 5. There has been good interval growth with the fetus currently 83rd percentile. The abdominal circumference is 92nd percentile. 6. Limited anatomical scan appears normal. Dictated by: Jaret Canseco MD 03/20/2024 15:11 Jaret Canseco MD in [place] 03/20/2024 15:11
== END 2024-03-20 23:59 | disposition home or self-care (01) ==
LOC: RAD 12:58
PROVIDERS: PCP Nurse Practitioner Family; Visit Provider Nurse Practitioner Obstetrics & Gynecology
DX: O36.5990 Maternal care for other known or suspected poor fetal growth, unspecified trimester, not applicable or unspecified (principal); O13.9 Gestational [pregnancy-induced] hypertension without significant proteinuria, unspecified trimester; O24.410 Gestational diabetes mellitus in pregnancy, diet controlled
CPT/HCPCS: 76816; 76819; 76820

== ENCOUNTER 2024-03-27 16:16 | Outpatient (CLI) | payer OTHER, SELFPAY | END 2024-03-27 23:59 | disposition home or self-care (01) | LOC: LAB.DROPOF 16:17 | PROVIDERS: PCP Nurse Practitioner Obstetrics & Gynecology; Visit Provider Nurse Practitioner Obstetrics & Gynecology | DX: Z34.90 Encounter for supervision of normal pregnancy, unspecified, unspecified trimester (principal) | CPT/HCPCS: 86403 ==

== ENCOUNTER 2024-04-03 16:10 | Inpatient (IN) | payer OTHER, SELFPAY ==
[2024-04-03] VITALS (23 sets, daily range): BP systolic 126–182; BP diastolic 73–119; PULSE 81–100; RESP 17–19; TEMP 36.5; O2SAT 96–100; BMI 32.8
[2024-04-03 15:23] LABS: Microscopic, Urine URINE MICROSCOPIC (MICROSCOPIC)
[2024-04-03 15:25] LABS: Appearance,Urine CLEAR (Clear); Bilirubin,Urine Negative (Negative); Blood, Urine Negative (Negative); Color,Urine YELLOW (Yellow); Glucose,Urine (UA) Negative (Negative); Ketones,Urine Negative (Negative); Leukocyte Esterase,Urine Negative (Negative); Nitrate,Urine Negative (Negative); Protein,Urine TRACE (Negative); Specific Gravity, Urine 1.025 (1.005-1.030); Urobilinogen,Urine 0.2 EU/dl (0.2)
[2024-04-03 15:27] LABS: Basophils % 0.5 % (0.1-2.0); Eosinophils # 0.1 K/mm3 (0.0-0.4); Eosinophils % 1.7 % (0.1-12.0); Hematocrit 35.5 % (37.0-47.0); Hemoglobin 12.2 g/dL (12.2-16.2); Lymphocytes # 1.6 K/mm3 (0.7-4.5); Lymphocytes % 23.4 % (10-50); Mean Corpuscular HGB Conc 34.4 g/dL (31.8-35.4); Mean Corpuscular Hemoglobin 29.2 pg (27.0-31.2); Mean Corpuscular Volume 85.1 fl (81-99); Mean Platelet Volume 10.1 fl (7.4-10.4); Monocytes # 0.4 K/mm3 (0.1-1.0); Monocytes % 5.6 % (1.7-9.3); Neutrophils # 4.8 K/mm3 (1.8-7.8); Neutrophils % 68.8 % (37.0-80.0); Platelet Count 199 K/mm3 (142-424); Red Blood Count 4.18 M/mm3 (4.20-5.40); Red Cell Distribution Width 16.3 % (11.5-17.5)
[2024-04-03 15:32] LABS: Chloride 108 mmol/L (98-107)
[2024-04-03 15:33] LABS: Albumin Level 3.4 g/dl (3.5-5.0); Potassium 4.1 mmoL/L (3.5-5.1); Sodium 133 mmol/L (136-145)
[2024-04-03 15:35] LABS: Alanine Aminotransferase 15 U/L (12-78); Albumin/Globulin Ratio 1.1 (1.1-1.8); Alkaline Phosphatase 194 U/L (38-126); Anion Gap 10.1 mEq/L (5-15); Aspartate Amino Transferase 30 U/L (14-36); Bilirubin,Total 0.4 mg/dl (0.2-1.3); Blood Urea Nitrogen 9 mg/dl (7-17); Carbon Dioxide 19 mmol/L (22.0-30.0); Creatinine Clearance Estimated 136 mL/min (50-200); Estimated Glomerular Filt Rate 84 ml/min (>60); GFR (African American) 102 ML/MIN (>60); Globulin 3.2 g/dL (1.3-3.2); Total Protein,Serum 6.6 g/dl (6.3-8.2)
[2024-04-03 15:36] LABS: Calcium 9.1 mg/dl (8.4-10.2); Glucose 105 mg/dl (74-100)
[2024-04-03] MEDS: LABETALOL 5MG/ML 20ML MDV 20 MG IV (15:47)
[2024-04-03 15:50] LABS: RBC,Urine Occasional #/hpf (0-3); Squamous Epithelial Cell,Urine Occasional #/hpf (0-5); WBC,Urine Occasional #/hpf (0-3)
[2024-04-03 15:51] LABS: Bacteria,Urine 1+ /lpf; Creatinine,Urine Random 130 mg/dL (Not Estab.)
[2024-04-03 15:59] LABS: Amphetamine/Metha Screen,Urine Negative ng/ml (<1000); Barbiturates Screen,Urine Negative ng/ml (<200); Benzodiazepines Screen,Urine Negative ng/ml (<200); Cannabinoid Screen,Urine Negative ng/ml (<50); Cocaine Screen,Urine Negative ng/ml (<300); Methadone Screen,Urine Negative ng/ml (<300); Opiate Screen,Urine Negative ng/ml (<300); Phencyclidine Screen,Urine Negative ng/ml (<25)
[2024-04-03 16:05] LABS: Uric Acid 6.5 mg/dl (2.5-6.2)
[2024-04-03 16:10] LABS: Activated Partial Thrombo Time 27.8 seconds (22.8-30.6); INR 0.86 (0.9-1.1); Prothrombin Time 9.8 seconds (10.1-12.5)
[2024-04-03] MEDS: MAGNESIUM SULFATE IN WATER 4 GM/50 ML PIGGYBACK IV (16:24)
--- NOTE | 2024-04-03 16:25 | EXP.HP ---
History of Present Illness *Admission Date: 04/03/24 *Reason for visit:: Term , -induced hypertension, chronic hypertension *History of present illness: She is a 29-year-old 2 para 1 at 38 and 1 weeks gestational age. She was seen in the office today with slightly increased blood pressure. We sent her over to labor and delivery and her blood pressures were as high as 178/119. As result of the that she is admitted and has received IV labetalol. Also start IV magnesium sulfate and plan to deliver her in the morning. Her uric acid is also elevated at 6.5. The rest of her blood work is normal. She has a trace of protein in her urine. She denies a headache or scotomata. A Rh+ blood Rubella immune Group B streptococcus negative [facility] Disclaimer: The information contained in this section may have been updated after the patient was seen, as this information can be updated by other users. Medical History Gestational hypertension Gestational diabetes mellitus Surgical History Hx of section Family History Diabetes Social History Smoking Status: Never smoker alcohol intake: never substance use type: denies use current occupational status: employed and other Travel in the last 8 weeks: None Other Medical History Have you received the Flu Vaccine for this season: Yes Have you received the Pneumonia Vaccine: No Review of Systems Review of Systems Review of systems:: pertinent systems reviewed and negative unless documented below Meds Home Medications and Allergies Home Medications ?Medication ?Instructions ?Recorded ?Confirmed ?Type duloxetine 30 mg capsule,delayed 30 mg PO DAILY 09/02/20 04/03/24 History release prenat.vits,niru,gba-yhhj-xuhtq 1 tab PO DAILY 09/07/21 04/03/24 History doxylamine succinate 25 mg tablet 25 mg PO HS PRN 09/28/23 04/03/24 History (Unisom (doxylamine)) labetalol 100 mg tablet 100 mg PO BID #60 tabs 12/29/23 04/03/24 Rx blood-glucose meter (OneTouch #1 ea 02/08/24 04/03/24 History Verio Flex Meter) blood sugar diagnostic (OneTouch #100 ea 03/02/24 04/03/24 Rx Verio test strips) lancets 33 gauge (OneTouch Delica #100 ea 03/02/24 04/03/24 Rx Plus Lancet) ferrous sulfate 325 mg (65 mg 325 mg PO DAILY #30 tabs 03/23/24 04/03/24 Rx iron) tablet New Prescriptions to Start Prescriptions: Allergies Allergy/AdvReac Type Severity Reaction Status Date / Time Sulfa (Sulfonamide Allergy Unknown Verified 04/03/24 14:07 Antibiotics) Exam Data for Last 24 hours Vital signs and Labs for Last 24 Hours: Laboratory Results - last 24 hr 04/03/24 14:58: Urine Color Yellow, Urine Appearance Clear, Urine pH 6.0, Ur Specific [place] 1.025, Urine Protein Trace, Urine Glucose (UA) Negative, Urine Ketones Negative, Urine Blood Negative, Urine Nitrate Negative, Urine Bilirubin Negative, Urine Urobilinogen 0.2, Ur Leukocyte Esterase Negative, Urine RBC Occasional, Urine WBC Occasional, Ur Squamous Epith Cells Occasional, Urine Bacteria 1+, Urine Creatinine 130, Urine Opiates Screen Negative, Urine Methadone Screen Negative, Ur Barbituates Screen Negative, Ur Phencyclidine Scrn Negative, Ur Amphetamines Screen Negative, U Benzodiazepines Scrn Negative, Urine Cocaine Screen Negative, U Marijuana (THC) Screen Negative 04/03/24 15:11: WBC 7.0, RBC 4.18 L, Hgb 12.2, Hct 35.5 L, MCV 85.1, MCH 29.2, MCHC 34.4, RDW 16.3, Plt Count 199, MPV 10.1, Neut % (Auto) 68.8, Lymph % (Auto) 23.4, [place] % (Auto) 5.6, Eos % (Auto) 1.7, Baso % (Auto) 0.5, Neut # (Auto) 4.8, Lymph # (Auto) 1.6, [place] # (Auto) 0.4, Eos # (Auto) 0.1, Baso # (Auto) 0.0, Sodium 133 L, Potassium 4.1, Chloride 108 H, Carbon Dioxide 19 L, Anion Gap 10.1, BUN 9, Creatinine 0.80, Estimated Creat Clear 136, Estimated GFR 84, Est GFR ( Amer) 102, Glucose 105 H, Uric Acid 6.5 H, Calcium 9.1, Total Bilirubin 0.4, AST 30, ALT 15, Alkaline Phosphatase 194 H, Total Protein 6.6, Albumin 3.4 L, Globulin 3.2, Albumin/Globulin Ratio 1.1 04/03/24 15:36: PT 9.8 L, INR 0.86 L, APTT 27.8, Blood Type A Positive I & O for Last 24 hours: Intake & Output 04/01/24 04/02/24 04/03/24 04/04/24 11:59 11:59 11:59 11:59 Weight 185 lb Constitutional Constitutional: no acute distress *Routine HEENT Exam Head: Present normocephalic Eye: Present EOMI and PERRL ENT: Present mucous membranes moist *Routine Neck Exam Neck: Present supple; Absent lymphadenopathy *Routine Respiratory Exam Respiratory: Present CTA bilaterally *Routine Cardiovascular Exam Cardiovascular: Present RRR *Routine Abdominal Exam Abdominal: Present soft and normoactive bowel sounds; Absent tenderness *Routine Rectal Exam Rectal:: deferred *Routine Genitalia Exam Genitalia:: deferred *Routine Extremities Exam Extremities: Absent cyanosis, clubbing or edema *Routine Skin Exam Skin: Present warm; Absent rash *Routine Neurological Exam Neurological: Present alert and oriented X3 Assessment and Plan *Assessment and plan (1) Hx of section: Status: Acute Category: Surgical Code(s): Z98.891 - History of uterine scar from previous surgery (2) Gestational hypertension: Status: Acute Qualifiers: Trimester: unspecified trimester Qualified Code(s): O13.9 - Gestational [-induced] hypertension without significant proteinuria, unspecified trimester Category: Medical Code(s): O13.9 - Gestational [-induced] hypertension without significant proteinuria, unspecified trimester (3) Gestational diabetes mellitus: Status: Acute Qualifiers: Gestational diabetes mellitus control: diet-controlled Trimester: third trimester Qualified Code(s): O24.410 - Gestational diabetes mellitus in , diet controlled Category: Medical Code(s): O24.419 - Gestational diabetes mellitus in , unspecified control (4) induced hypertension, antepartum: Status: Acute Category: Medical Code(s): O13.9 - Gestational [-induced] hypertension without significant proteinuria, unspecified trimester Plan She is admitted for blood pressure control. Will start magnesium sulfate as well as IV labetalol. We will plan to repeat her section in the morning.
[2024-04-03] MEDS: LACTATED RINGERS 1000ML 1,000 ML 75 ML IV (16:41)
[2024-04-03] MEDS: MAGNESIUM SULFATE IN WATER 20 GM/500 ML IV.SOLN IV (16:41)
[2024-04-03 16:43] LABS: Magnesium 1.9 mg/dl (1.6-2.3)
[2024-04-03] MEDS: DULOXETINE 30MG CAPSULE.DR 30 MG PO (21:08)
[2024-04-03] MEDS: LABETALOL 100MG TABLET 100 MG PO (21:08)
[2024-04-03 22:56] LABS: Fibrinogen 389 mg/dL (229.9-363.5)
[2024-04-04] VITALS (32 sets, daily range): BP systolic 111–164; BP diastolic 57–107; PULSE 66–94; RESP 14–19; TEMP 36.3–36.6; O2SAT 96–100
[2024-04-04] MEDS: MAGNESIUM SULFATE IN WATER 20 GM/500 ML IV.SOLN IV ×3 (01:31→23:47)
[2024-04-04 07:17] LABS: Magnesium 5.7 mg/dl (1.6-2.3)
--- NOTE | 2024-04-04 07:34 | EXP.ANES.CKL ---
[facility] Disclaimer: The information contained in this section may have been updated after the patient was seen, as this information can be updated by other users. Medical History Depression Anxiety Gestational hypertension Gestational diabetes mellitus Surgical History Hx of section Family History Other Family history of cancer Family history of diabetes mellitus type II Family history of hyperlipidemia Family history of hypertension Family history of myocardial infarction Social History Smoking Status: Never smoker alcohol intake: never substance use type: denies use current occupational status: employed and other Travel in the last 8 weeks: None do you feel safe at home: Yes victim of physical abuse: No victim of emotional abuse: No victim of sexual abuse: No [facility] Anesthesia Checklist Patient Identification Patient Identification: Arm Band and Verbal (Name & ) Structural Data Admitted From: Inpatient Planned Operative Procedure/s: Repeat C/Section Consent for Planned Operative Procedure(s) Verified: Yes Verified Documents: Surgical Consent and History and Physical NPO Status Verified Time NPO: 00:00 Chart Verification Results Verified: CBC Additional verifications Patient : Yes Anesthesia Reactions: No Airway Assessment Mallampati Score:: Class II C-Spine Mobility Assessed: Yes TMJ Mobility Assessed: Yes Dentition: Good Dentition Neurological Assessment Level of Consciousness: Awake Hx Seizures: No Numbness or tingling in extremities: No Anesthesia Plan Anesthesia Risk discussed: Yes Anesthesia Plan: Verified ASA Class: III Anesthesia Type: Spinal
[2024-04-04] MEDS: CEFAZOLIN SODIUM 2 GM in 0.9 % SODIUM CHLORIDE 100 ML IV ×3 (08:22→23:47)
--- NOTE | 2024-04-04 08:48 | HMH.PHAINT1 ---
Pharmacy Intervention Comments: HOME MEDICATIONS VERIFIED VIA OUTPATIENT PHARMACY
--- NOTE | 2024-04-04 09:37 | EXP.OP.NOTE ---
Date of procedure: 04/04/24 Pre-op Diagnosis:: Term , gestational hypertension, superimposed -induced hypertension, gestational diabetes diet-controlled, previous section. Post-op Diagnosis:: Term , gestational hypertension, superimposed -induced hypertension, gestational diabetes diet-controlled, previous section Procedure performed:: Repeat lower segment transverse section Surgeon:: Jaret Canseco MD Senior Data Integration Developer(s):: Dr. Kerr MANAGER RESEARCH AND DEVELOPMENT:: Renea Aguayo Anesthesia: spinal Estimated blood loss (mL): 250 Clinical Note:: She is a 29-year-old 2 para 1 at 38 weeks and 2 weeks gestational age. She was seen in my office yesterday and had increased blood pressure. When she got to labor and delivery she was found to have blood pressures in the 170s over 115 range. She received IV labetalol as well as IV magnesium sulfate. Her reflexes were brisk at the time. She denied any headache, scotomata or epigastric pain at the time. As a result of her increased blood pressure at term we elected to perform a repeat lower segment transverse section. Operative findings:: She lived to live born male child at 8:49 AM on the morning of April 04, 2024. The baby had Apgars of 6 at 1 minute and 7 at 5 minutes. pH was 7.30. There was thin meconium. The ovaries and tubes appeared normal. Operative note:: She was taken to the operating room where spinal anesthesia was found be adequate. She was prepped and draped in normal sterile fashion in the supine position. A Roberts catheter was in the bladder. A Pfannenstiel skin incision was made with knife then carried through to the underlying layer of fascia with cautery. The fascia was opened in the midline with cautery and extended laterally using Massey scissors. Jonnathan clamps were applied to the superior aspect of the fascial incision which was tented up and the underlying rectus muscles dissected off using cautery. The Garland clamps were then applied to the inferior aspect of the fascial incision which in a similar fashion was tented up and the underlying rectus muscles dissected off using cautery. The rectus muscles were then in the midline, the peritoneum identified, and entered sharply. This incision was then extended superior and inflated with cautery. An Ciro retractor was then inserted into the abdominal cavity. Bladder peritoneum was opened midline extended laterally using Metzenbaum scissors. Transverse incision was made through the uterine muscle through to the amnion. This incision was then extended superiorly and inferiorly using the fingers as traction. The amnion was entered sharply with knife. There was meconium stained amniotic fluid. The 's head was then delivered atraumatically. This was followed by the anterior shoulder and the rest of the 's body atraumatically. The oropharynx and nasopharynx were bulb suctioned. The cord was then doubly clamped and cut. The was then handed off to Dr. Mayfield who assigned Apgars of 6 at 1 minute and 7 at 5 minutes. We then obtained cord pH. The pH was 7.30. Using gentle traction on the cord and fundal massage I was able to easily deliver the placenta intact. It had a normal three-vessel cord. The uterus was then cleared of clots and debris . The uterine incision was then closed using running 0 Vicryl suture in a locked fashion. A second layer of the same suture was used to imbricate the first layer. The gutters and cul-de-sac were then cleared of clots and debris . Once again hemostasis was assured. The peritoneum was then closed with 2-0 Vicryl suture followed by reapproximation of the rectus muscle using 0 Vicryl suture. The fascia was closed using running #1 Vicryl suture. The subcutaneous tissues were then irrigated with warm water followed by closure Galo's fascia using running 2-0 Monocryl suture. The skin was closed with absorbable duke. I then cleaned the skin with Hibiclens. Sterile dressings were applied. Anesthesia then performed a tap block under ultrasound guidance. She tolerated the procedure well and was taken to the recovery room in excellent condition. All sponges, instrument and needle counts were correct. Estimated blood loss was approximately 250 mL.. Condition: stable Disposition: floor Specimens:: none Complications:: none
--- NOTE | 2024-04-04 09:48 | SUR.OPER ---
Tob- 0849 Cord blood PH-7.30
[2024-04-04 10:16] LABS: Microscopic,Cath URINE MICROSCOPIC (MICROSCOPIC)
[2024-04-04 10:23] LABS: Appearance,Urine/Cath CLEAR (Clear); Bilirubin,Cath Negative (Negative); Blood, Urine/Cath Negative (Negative); Color,Urine/Cath YELLOW (Yellow); Glucose,Urine/Cath (UA) Negative (Negative); Ketones,Urine/Cath 1+ (Negative); Leukocyte Esterase,Cath Negative (Negative); Nitrate,Cath Negative (Negative); Protein,Urine/Cath Negative (Negative); Specific Gravity, Urine/Cath >= 1.030 (1.005-1.030); Urobilinogen,Cath 0.2 EU/dl (0.2)
[2024-04-04] MEDS: OXYTOCIN/RINGERS LACTATE 30 UNITS/500 ML BAG 40 UNITS IV (10:23)
[2024-04-04] MEDS: LABETALOL 100MG TABLET 100 MG PO ×2 (10:24→12:22)
[2024-04-04 10:32] LABS: Squamous Epithelial Ur./Cath Occasional #/hpf (0-5)
[2024-04-04] MEDS: KETOROLAC 30MG/ML VIAL 30 MG IV ×3 (10:36→22:00)
[2024-04-04] MEDS: ACETAMINOPHEN 500MG TAB 1000 MG PO ×3 (10:36→21:59)
[2024-04-04] MEDS: PROMETHAZINE HCL 25MG/ML 1ML VIAL 12.5 MG IV (11:42)
[2024-04-04] MEDS: HYDROMORPHONE 2MG/ML SYRINGE 2 MG IV ×2 (11:42→20:15)
[2024-04-04] MEDS: SODIUM CHLORIDE 0.9% 25ML BAG 25 ML IV (11:42)
[2024-04-04] MEDS: LABETALOL 5MG/ML 20ML MDV 10 MG IV (12:21)
[2024-04-04] MEDS: LABETALOL 5MG/ML 20ML MDV 20 MG IV (12:54)
[2024-04-04 13:12] LABS: Rapid Plasma Reagin Ab Titer Non Reactive titer (NonRea<1:1)
[2024-04-04] MEDS: PRENATAL MULTIVITAMIN W/IRON 1 EACH PO (16:24)
[2024-04-04] MEDS: ONDANSETRON 4MG/2ML VIAL 4 MG IV (20:09)
[2024-04-04] MEDS: SIMETHICONE 80MG CHEWABLE TABLET 160 MG PO (20:10)
[2024-04-04] MEDS: SENNA 8.6MG TABLET 8.6 MG PO (20:11)
[2024-04-04] MEDS: DULOXETINE 30MG CAPSULE.DR 30 MG PO (20:11)
[2024-04-04] MEDS: LABETALOL 100MG TABLET 200 MG PO (20:11)
[2024-04-04] MEDS: ALUMINUM/MAGNESIUM/SIMETHICONE 30ML UDC 30 ML PO (21:59)
[2024-04-05] VITALS (14 sets, daily range): BP systolic 108–156; BP diastolic 60–94; PULSE 65–85; RESP 14–18; TEMP 36.3–36.9; O2SAT 95–100
[2024-04-05] MEDS: KETOROLAC 30MG/ML VIAL 30 MG IV (04:03)
[2024-04-05] MEDS: ACETAMINOPHEN 500MG TAB 1000 MG PO ×3 (04:03→18:22)
[2024-04-05 07:22] LABS: Basophils # 0.1 K/mm3 (0-0.2); Basophils % 0.6 % (0.1-2.0); Eosinophils # 0.2 K/mm3 (0.0-0.4); Eosinophils % 1.8 % (0.1-12.0); Hemoglobin 12.6 g/dL (12.2-16.2); Lymphocytes % 22.9 % (10-50); Mean Corpuscular HGB Conc 33.2 g/dL (31.8-35.4); Mean Corpuscular Hemoglobin 28.8 pg (27.0-31.2); Mean Corpuscular Volume 86.7 fl (81-99); Mean Platelet Volume 9.8 fl (7.4-10.4); Monocytes # 0.6 K/mm3 (0.1-1.0); Monocytes % 6.6 % (1.7-9.3); Neutrophils # 5.9 K/mm3 (1.8-7.8); Platelet Count 221 K/mm3 (142-424); Red Blood Count 4.38 M/mm3 (4.20-5.40); Red Cell Distribution Width 16.4 % (11.5-17.5); White Blood Count 8.6 K/mm3 (4.8-10.8)
[2024-04-05 07:29] LABS: Anion Gap 9.1 mEq/L (5-15); Blood Urea Nitrogen 5 mg/dl (7-17); Calcium 6.7 mg/dl (8.4-10.2); Carbon Dioxide 28 mmol/L (22.0-30.0); Chloride 101 mmol/L (98-107); Creatinine Clearance Estimated 136 mL/min (50-200); Estimated Glomerular Filt Rate 84 ml/min (>60); GFR (African American) 102 ML/MIN (>60); Glucose 72 mg/dl (74-100); Potassium 4.1 mmoL/L (3.5-5.1); Sodium 134 mmol/L (136-145)
[2024-04-05 07:50] LABS: Magnesium 6.8 mg/dl (1.6-2.3)
[2024-04-05] MEDS: LABETALOL 100MG TABLET 200 MG PO ×2 (08:45→20:47)
--- NOTE | 2024-04-05 09:05 | P.PN_ITS ---
Subjective *Date: 04/05/24 *Time: 12:35 Interval history: Usha Zheng is a G2, P2 postoperative day #1 following a repeat delivery at 38 weeks and 2 days gestation secondary to preeclampsia. was complicated by GDMA1 and preeclampsia. She completed her 24 hours of magn esium this morning. Routine delivery and course. She is doing well, sitting up in bed, and visiting with family this morning. -Reports pain is well-controlled -Reports she is tolerating p.o. without nausea or vomiting. -Reports her lochia is scant. -She is breast-feeding her female infant -Denies chest pain shortness of breath or pain in her legs. No further complaints at this time. Exam Data for Last 24 hours Vital signs and Labs for Last 24 Hours: Temp Pulse Resp BP Pulse Ox O2 Del Method 98.4 F 82 18 142/94 H 97 Room Air 04/05/24 08:29 04/05/24 08:29 04/05/24 08:29 04/05/24 08:29 04/05/24 08:29 04/05/24 08:29 Laboratory Results - last 24 hr 04/03/24 15:36: RPR Titer Non reactive, Blood Type A Positive, Antibody Screen Negative, Crossmatch (AHG) See Detail 04/04/24 08:30: Urine Color Yellow, Urine Appearance Clear, Urine pH 6.0, Ur Specific [place] >= 1.030, Urine Protein Negative, Urine Glucose (UA) Negative, Urine Ketones 1+, Urine Blood Negative, Urine Nitrate Negative, Urine Bilirubin Negative, Urine Urobilinogen 0.2, Ur Leukocyte Esterase Negative, Urine RBC None, Urine WBC None, Ur Squamous Epith Cells Occasional, Urine Bacteria None 04/05/24 07:02: WBC 8.6, RBC 4.38, Hgb 12.6, Hct 38.0, MCV 86.7, MCH 28.8, MCHC 33.2, RDW 16.4, Plt Count 221, MPV 9.8, Neut % (Auto) 68.0, Lymph % (Auto) 22.9, [place] % (Auto) 6.6, Eos % (Auto) 1.8, Baso % (Auto) 0.6, Neut # (Auto) 5.9, Lymph # (Auto) 2.0, [place] # (Auto) 0.6, Eos # (Auto) 0.2, Baso # (Auto) 0.1, Sodium 134 L, Potassium 4.1, Chloride 101, Carbon Dioxide 28, Anion Gap 9.1, BUN 5 L D, Creatinine 0.80, Estimated Creat Clear 136, Estimated GFR 84, Est GFR ( Amer) 102, Glucose 72 L, Calcium 6.7 L, Magnesium 6.8 H D I & O for Last 24 hours: Intake & Output 04/02/24 04/03/24 04/04/24 04/05/24 23:59 23:59 23:59 23:59 Intake Total 331 / 331 3045 / 3045 1382 / 1382 Output Total 600 / 600 2185 / 2185 3880 / 3880 Balance -269 / -269 860 / 860 -2498 / -2498 Weight 185 lb Narrative: General: patient is alert oriented in no acute distress and responds appropriately to questions. Appears to be in minimal pain. HEENT: NCAT, EOMI, moist mucous membranes, neck supple with full ROM Cardiovascular: RRR +S1/S2, no murmurs or rubs Pulmonary: Clear to auscultation bilaterally, mild crackles in the lateral lower lobes bilaterlaly. nonlabored breathing, symmetric chest rise Abdominal: Fundus at the umbilicus, firm, and tenderness appropriate for the period. BS x4 present Extremities: +2 edema, no tenderness or cyanosis noted Skin: Normal turgor, intact, warm. Negative for erythema, pallor, petechia, or lesions Neurologic: Negative for sensory or motor deficit Psychiatric: Normal affect, normal thought process, good judgment and insight, no depression or anxious mood appreciated. Constitutional Constitutional: no acute distress *Routine HEENT Exam Head: Present normocephalic Eye: Present EOMI and PERRL ENT: Present mucous membranes moist *Routine Neck Exam Neck: Present supple; Absent lymphadenopathy *Routine Respiratory Exam Respiratory: Present CTA bilaterally *Routine Cardiovascular Exam Cardiovascular: Present RRR *Routine Abdominal Exam Abdominal: Present soft and normoactive bowel sounds; Absent tenderness *Routine Extremities Exam Extremities: Absent cyanosis, clubbing or edema *Routine Skin Exam Skin: Present warm; Absent rash *Routine Neurological Exam Neurological: Present alert and oriented X3 Assessment and Plan *Assessment and plan (1) Gestational hypertension: Status: Acute Qualifiers: Trimester: unspecified trimester Qualified Code(s): O13.9 - Gestational [-induced] hypertension without significant proteinuria, unspecified trimester Category: Medical Code(s): O13.9 - Gestational [-induced] hypertension without significant proteinuria, unspecified trimester (2) Gestational diabetes mellitus: Status: Acute Qualifiers: Gestational diabetes mellitus control: diet-controlled Trimester: third trimester Qualified Code(s): O24.410 - Gestational diabetes mellitus in , diet controlled Category: Medical Code(s): O24.419 - Gestational diabetes mellitus in , unspecified control (3) delivery delivered: Status: Acute Category: Medical Code(s): O82 - Encounter for delivery without indication (4) Preeclampsia: Status: Acute Category: Medical Code(s): O14.90 - Unspecified pre-eclampsia, unspecified trimester Plan Stable. POD#1 s/p RLTCS -Doing well. VSS. Serial lochia and fundal checks. -She has not yet ambulated or spontaneously voided primarily secondary to being on magnesium. Encouraged ambulation today -Encouraged incentive spirometer. -BP well controlled overnight. Increased BP med to 200mg BID. -Hemoglobin: 12.2--> 12.6 -A+/antibody negative -Contraception: undecided -Follow-up 2 weeks for routine visit -Dispo: home in 3 days pending mother/infant status
[2024-04-05] MEDS: OXYCODONE 5MG IMMEDIATE RELEASE TABLET 5 MG PO ×4 (09:21→22:32)
--- NOTE | 2024-04-05 11:56 | P.PNANES_ITS ---
[facility] Anesthesia Record Part II Anesthesia Record Part II Discharge Time: 09:55 Destination: Obstetric PACU nurse assessment reviewed?: Yes Patient Condition:: Good Anesthesia Complications:: None Swallowing reflex intact?: Yes Airway Patency: Patent Cyanosis?: No Blood Pressure: 141/84 SaO2: 100 Respiratory Rate: 14 Pulse Rate: 70 Temperature: 97.4 F Mental Status: Alert & Oriented Pain level:: 0 Nausea and/or vomitting:: None Intake, IV Amount: 0 Hydration: Adequate
[2024-04-05] MEDS: IBUPROFEN 400 MG TABLET 800 MG PO ×2 (12:49→18:23)
[2024-04-05] MEDS: PRENATAL MULTIVITAMIN W/IRON 1 EACH PO (18:22)
[2024-04-05] MEDS: SENNA 8.6MG TABLET 8.6 MG PO (18:22)
[2024-04-05] MEDS: DULOXETINE 30MG CAPSULE.DR 30 MG PO (20:48)
[2024-04-05] MEDS: SIMETHICONE 80MG CHEWABLE TABLET 160 MG PO (22:02)
[2024-04-06 00:27] VITALS: BP 127/62; PULSE 72; RESP 16; O2SAT 97
[2024-04-06] MEDS: IBUPROFEN 400 MG TABLET 800 MG PO ×3 (00:30→20:24)
[2024-04-06] MEDS: ACETAMINOPHEN 500MG TAB 1000 MG PO ×4 (00:30→20:24)
[2024-04-06 04:50] VITALS: BP 134/88; PULSE 83; RESP 17; TEMP 36.9; O2SAT 97
[2024-04-06] MEDS: OXYCODONE 5MG IMMEDIATE RELEASE TABLET 5 MG PO ×2 (06:37→13:43)
[2024-04-06 08:15] VITALS: BP 135/89; PULSE 65; RESP 16; TEMP 36.8; O2SAT 96
[2024-04-06 08:54] LABS: Alanine Aminotransferase 18 U/L (12-78); Albumin Level 3.1 g/dl (3.5-5.0); Albumin/Globulin Ratio 1.1 (1.1-1.8); Alkaline Phosphatase 150 U/L (38-126); Aspartate Amino Transferase 27 U/L (14-36); Bilirubin,Total 0.4 mg/dl (0.2-1.3); Blood Urea Nitrogen 9 mg/dl (7-17); Calcium 8.6 mg/dl (8.4-10.2); Carbon Dioxide 24 mmol/L (22.0-30.0); Chloride 106 mmol/L (98-107); Creatinine Clearance Estimated 136 mL/min (50-200); Estimated Glomerular Filt Rate 84 ml/min (>60); GFR (African American) 102 ML/MIN (>60); Globulin 2.7 g/dL (1.3-3.2); Glucose 81 mg/dl (74-100); Sodium 138 mmol/L (136-145); Total Protein,Serum 5.8 g/dl (6.3-8.2)
[2024-04-06] MEDS: LABETALOL 100MG TABLET 200 MG PO ×2 (09:05→21:16)
--- NOTE | 2024-04-06 09:06 | EXP.PN ---
Subjective *Date: 04/06/24 *Time: 09:06 Interval history: Usha Zheng is a G2, P2 postoperative day #2 following a repeat delivery at 38 weeks and 2 days gestation secondary to preeclampsia. was complicated by GDMA1 and preeclampsia. She completed her 24 hours of magnesium. Routine delivery and course. She is doing well, sitting up in bed, and visiting with family this morning. feeling much better this morning. -Reports pain is well-controlled -Reports she is tolerating p.o. without nausea or vomiting. -Reports her lochia is scant. -She is breast-feeding her male infant -Denies chest pain shortness of breath or pain in her legs. No further complaints at this time. Exam Data for Last 24 hours Vital signs and Labs for Last 24 Hours: Temp Pulse Resp BP Pulse Ox O2 Del Method 98.3 F 65 16 135/89 96 Room Air 04/06/24 08:15 04/06/24 08:15 04/06/24 08:15 04/06/24 08:15 04/06/24 08:15 04/06/24 08:15 Laboratory Results - last 24 hr 04/06/24 08:35: Sodium 138, Potassium 4.0, Chloride 106, Carbon Dioxide 24, Anion Gap 12.0, BUN 9 D, Creatinine 0.80, Estimated Creat Clear 136, Estimated GFR 84, Est GFR ( Amer) 102, Glucose 81, Calcium 8.6, Total Bilirubin 0.4, AST 27, ALT 18, Alkaline Phosphatase 150 H, Total Protein 5.8 L, Albumin 3.1 L, Globulin 2.7, Albumin/Globulin Ratio 1.1 I & O for Last 24 hours: Intake & Output 04/03/24 04/04/24 04/05/24 04/06/24 23:59 23:59 23:59 23:59 Intake Total 331 / 331 3045 / 3045 1382 / 1382 Output Total 600 / 600 2185 / 2185 6260 / 6260 900 / 900 Balance -269 / -269 860 / 860 -4878 / -4878 -900 / -900 Weight 185 lb Narrative: General: patient is alert oriented in no acute distress and responds appropriately to questions. Appears to be in minimal pain. HEENT: NCAT, EOMI, moist mucous membranes, neck supple with full ROM Cardiovascular: RRR +S1/S2, no murmurs or rubs Pulmonary: Clear to auscultation bilaterally, mild crackles in the lateral lower lobes bilaterlaly. nonlabored breathing, symmetric chest rise Abdominal: Fundus below the umbilicus, firm, and tenderness appropriate for the period. BS x4 present Extremities: +2 edema, no tenderness or cyanosis noted Skin: Normal turgor, intact, warm. Negative for erythema, pallor, petechia, or lesions. incision covered with a dressing, no signs of bleeding or infection Neurologic: Negative for sensory or motor deficit Psychiatric: Normal affect, normal thought process, good judgment and insight, no depression or anxious mood appreciated. Constitutional Constitutional: no acute distress *Routine HEENT Exam Head: Present normocephalic Eye: Present EOMI and PERRL ENT: Present mucous membranes moist *Routine Neck Exam Neck: Present supple; Absent lymphadenopathy *Routine Respiratory Exam Respiratory: Present CTA bilaterally *Routine Cardiovascular Exam Cardiovascular: Present RRR *Routine Abdominal Exam Abdominal: Present soft and normoactive bowel sounds; Absent tenderness *Routine Extremities Exam Extremities: Absent cyanosis, clubbing or edema *Routine Skin Exam Skin: Present warm; Absent rash *Routine Neurological Exam Neurological: Present alert and oriented X3 Assessment and Plan *Assessment and plan (1) Gestational hypertension: Status: Acute Qualifiers: Trimester: unspecified trimester Qualified Code(s): O13.9 - Gestational [-induced] hypertension without significant proteinuria, unspecified trimester Category: Medical Code(s): O13.9 - Gestational [-induced] hypertension without significant proteinuria, unspecified trimester (2) Gestational diabetes mellitus: Status: Acute Qualifiers: Gestational diabetes mellitus control: diet-controlled Trimester: third trimester Qualified Code(s): O24.410 - Gestational diabetes mellitus in , diet controlled Category: Medical Code(s): O24.419 - Gestational diabetes mellitus in , unspecified control (3) delivery delivered: Status: Acute Category: Medical Code(s): O82 - Encounter for delivery without indication (4) Preeclampsia: Status: Acute Category: Medical Code(s): O14.90 - Unspecified pre-eclampsia, unspecified trimester Plan Stable. POD#2 s/p RLTCS -Doing well. VSS. Serial lochia and fundal checks. -She has not yet ambulated or spontaneously voided primarily secondary to being on magnesium. Encouraged ambulation today -Encouraged incentive spirometer. -BP well controlled overnight. Increased BP med to 200mg BID. -Hemoglobin: 12.2--> 12.6 -A+/antibody negative -Contraception: undecided -Follow-up 2 weeks for routine visit -Dispo: home in 3 days pending mother/ status repeat CMP today to follow [facility] labs prior to discharge tomorrow. doing well. cont routine pp care
[2024-04-06 12:41] VITALS: BP 129/59; PULSE 90; RESP 16; TEMP 36.8; O2SAT 97
[2024-04-06 16:26] VITALS: BP 149/82; PULSE 71; RESP 18; TEMP 36.9; O2SAT 97
[2024-04-06 20:20] VITALS: BP 145/82; PULSE 88; RESP 20; TEMP 36.7; O2SAT 97
[2024-04-06] MEDS: ONDANSETRON 4MG ODT 4 MG SL (21:17)
[2024-04-06] MEDS: DULOXETINE 30MG CAPSULE.DR 30 MG PO (21:17)
[2024-04-07 00:57] VITALS: BP 128/62; PULSE 77; RESP 17; O2SAT 97
[2024-04-07 04:53] VITALS: BP 138/73; PULSE 83; RESP 16; TEMP 36.8; O2SAT 97
[2024-04-07 08:30] VITALS: BP 144/84; PULSE 83; RESP 18; TEMP 36.9
[2024-04-07] MEDS: IBUPROFEN 400 MG TABLET 800 MG PO (09:43)
[2024-04-07] MEDS: LABETALOL 100MG TABLET 200 MG PO (09:43)
[2024-04-07] MEDS: ACETAMINOPHEN 500MG TAB 1000 MG PO (09:44)
--- NOTE | 2024-04-07 12:38 | EXP.DC.SUM ---
General Admission date:: 04/03/24 Discharge date: 04/07/24 HPI HPI HPI: She is a 29-year-old 2 para 1 at 38 and 1 weeks gestational age. She was seen in the office today with slightly increased blood pressure. We sent her over to labor and delivery and her blood pressures were as high as 178/119. As result of the that she is admitted and has received IV labetalol. Also start IV magnesium sulfate and plan to deliver her in the morning. Her uric acid is also elevated at 6.5. The rest of her blood work is normal. She has a trace of protein in her urine. She denies a headache or scotomata. A Rh+ blood Rubella immune Group B streptococcus negative Hospital Course Hospital Course Hospital Course: Usha Zheng is a 29-year-old day #3 from a repeat low-transverse delivery at 38 weeks and 1 day gestation. was complicated by preeclampsia and diabetes. She was rubella immune and GBS negative. Her blood type was a positive. She delivered a live viable male on 04/04/2024 at 849. Infant weight 8 pounds 3 ounces and was 19-1/2 inch long. Apgars were 6 and 7 at 1 and 5 minutes respectively. She has both breast and bottlefeeding. Her blood pressure has been well-controlled on the stage. She received 24 hours of magnesium postoperatively. She was discharged home on labetalol 200 mg twice daily. She will follow-up in 1 to 2 weeks for a blood pressure check and routine visit. Exam Data for Last 24 hours Vital signs and Labs for Last 24 Hours: Temp Pulse Resp BP Pulse Ox O2 Del Method 98.4 F 83 18 144/84 H 97 Room Air 04/07/24 08:30 04/07/24 08:30 04/07/24 08:30 04/07/24 08:30 04/07/24 04:53 04/07/24 04:53 Laboratory Results - last 24 hr 04/03/24 15:36: Crossmatch ([facility]) See Detail I & O for Last 24 hours: Intake & Output 04/04/24 04/05/24 04/06/24 04/07/24 23:59 23:59 23:59 23:59 Intake Total 3045 / 3045 1382 / 1382 Output Total 2185 / 2185 6260 / 6260 900 / 900 Balance 860 / 860 -4878 / -4878 -900 / -900 Narrative: General: patient is alert oriented in no acute distress and responds appropriately to questions. Appears to be in minimal pain. HEENT: NCAT, EOMI, moist mucous membranes, neck supple with full ROM Cardiovascular: RRR +S1/S2, no murmurs or rubs Pulmonary: Clear to auscultation bilaterally, mild crackles in the lateral lower lobes bilaterlaly. nonlabored breathing, symmetric chest rise Abdominal: Fundus below the umbilicus, firm, and tenderness appropriate for the period. BS x4 present Extremities: +2 edema, no tenderness or cyanosis noted Skin: Normal turgor, intact, warm. Negative for erythema, pallor, petechia, or lesions. incision healing well, no signs of bleeding or infection Neurologic: Negative for sensory or motor deficit Psychiatric: Normal affect, normal thought process, good judgment and insight, no depression or anxious mood appreciated. Constitutional Constitutional: no acute distress *Routine HEENT Exam Head: Present normocephalic Eye: Present EOMI and PERRL ENT: Present mucous membranes moist *Routine Neck Exam Neck: Present supple; Absent lymphadenopathy *Routine Respiratory Exam Respiratory: Present CTA bilaterally *Routine Cardiovascular Exam Cardiovascular: Present RRR *Routine Abdominal Exam Abdominal: Present soft and normoactive bowel sounds; Absent tenderness *Routine Extremities Exam Extremities: Absent cyanosis, clubbing or edema *Routine Skin Exam Skin: Present warm; Absent rash *Routine Neurological Exam Neurological: Present alert and oriented X3 Results Data Completed and Pending Labs on day of discharge: Labs from last 24 hours 04/03/24 15:36 Crossmatch ([facility]) See Detail DS: Diagnosis Discharge Diagnosis (1) Gestational hypertension: Status: Acute Code(s): O13.9 - Gestational [-induced] hypertension without significant proteinuria, unspecified trimester Qualifiers: Trimester: unspecified trimester Qualified Code(s): O13.9 - Gestational [-induced] hypertension without significant proteinuria, unspecified trimester (2) Gestational diabetes mellitus: Status: Acute Code(s): O24.419 - Gestational diabetes mellitus in , unspecified control Qualifiers: Gestational diabetes mellitus control: diet-controlled Trimester: third trimester Qualified Code(s): O24.410 - Gestational diabetes mellitus in , diet controlled (3) delivery delivered: Status: Acute Code(s): O82 - Encounter for delivery without indication (4) Preeclampsia: Status: Acute Code(s): O14.90 - Unspecified pre-eclampsia, unspecified trimester Meds Home Medications and Allergies Home Medications ?Medication ?Instructions ?Recorded ?Confirmed ?Type duloxetine 30 mg capsule,delayed 30 mg PO DAILY 09/02/20 04/04/24 History release prenat.vits,niru,dju-tehr-jegtj 1 tab PO DAILY 09/07/21 04/03/24 History doxylamine succinate 25 mg tablet 25 mg PO HS PRN Insomnia 09/28/23 04/03/24 History (Unisom (doxylamine)) ferrous sulfate 325 mg (65 mg 325 mg PO DAILY #30 tabs 03/23/24 04/04/24 Rx iron) tablet acetaminophen 500 mg tablet 500 mg PO Q6H PRN fever or pain 04/07/24 Rx #30 tabs ibuprofen 800 mg tablet 800 mg PO Q8H PRN pain #60 tabs 04/07/24 Rx labetalol 100 mg tablet 200 mg (2 x 100 mg) PO BID #60 tabs 04/07/24 Rx oxycodone 5 mg tablet 5 mg PO Q8H PRN pain #20 tabs 04/07/24 Rx sennosides 8.6 mg tablet (Senna 8.6 mg PO BIDP PRN Constipation 04/07/24 Rx Lax) #60 tabs simethicone 125 mg tablet 125 mg PO DAILY PRN abdominal 04/07/24 Rx distention #60 tabs New Prescriptions to Start Prescriptions: acetaminophen Usha Kerr ibuprofen Usha Kerr labetalol Usha Kerr oxycodone Usha Kerr sennosides [Senna Lax] Usha Kerr simethicone Usha Kerr Allergies Allergy/AdvReac Type Severity Reaction Status Date / Time Sulfa (Sulfonamide Allergy Unknown Verified 04/03/24 14:07 Antibiotics) Discharge Plan Disposition Patient Disposition: Home, Self-Care Discharge Order Discharge Orders: Discharge Order (Routine); Ordered 04/07/24 Ordered By: Usha Kerr Follow up Plan Follow up with: Jaret Canseco MD [Staff Physician] - 04/12/24 1:45 pm (FOLLOW UP FOR BP) Prescriptions/Medication Reconciliation: New labetalol 100 mg Tablet 200 mg PO BID Qty: 60 0RF sennosides [Senna Lax] 8.6 mg Tablet 8.6 mg PO BIDP PRN (Reason: Constipation) Qty: 60 2RF ibuprofen 800 mg tablet 800 mg PO Q8H PRN (Reason: pain) Qty: 60 2RF acetaminophen 500 mg tablet 500 mg PO Q6H PRN (Reason: fever or pain) Qty: 30 3RF simethicone 125 mg tablet 125 mg PO DAILY PRN (Reason: abdominal distention) Qty: 60 2RF oxycodone 5 mg tablet 5 mg PO Q8H PRN (Reason: pain) Qty: 20 0RF Continued duloxetine 30 mg capsule,delayed release(DR/EC) 30 mg PO DAILY prenat.vits,niru,yil-hisr-qyheu Tablet 1 tab PO DAILY Unisom (doxylamine) 25 mg tablet 25 mg PO HS PRN (Reason: Insomnia) ferrous sulfate 325 mg (65 mg iron) tablet 325 mg PO DAILY Qty: 30 2RF Discontinued (DME) blood-glucose meter [OneTouch Verio Flex meter] Misc See Rx Instructions .ROUTE .MEDSUPPLY Qty: 1 Patient Comments: USE as directed TO test FOUR TIMES DAILY Rx Instructions: USE DIRECTED TO TEST FOUR TIMES DAILY labetalol 100 mg tablet 100 mg PO BID Qty: 60 2RF (DME) OneTouch Verio test strips Strip See Rx Instructions .Route Qty: 100 0RF Rx Instructions: USE TO TEST FOUR TIMES DAILY (DME) lancets [OneTouch Delica Plus Lancet] [facility]LLANE[facility] Patient Comments: As directed Rx Instructions: USE DIRECTED Problem Reconciliation Problems Reviewed?: Yes Patient Discharge Instructions ACTIVITY: Continue current activity DIET: regular diet Additional Instructions: Congratulations on the delivery of your sweet baby boy. It is my privilege to be a part of your [employer] team and I am so thankful I could be a part of your special day. Discharge: 1. Take 800 mg Ibuprofen every 8 hours as needed for pain. You can also take 500-1000mg of Tylenol in between doses, every 6-8 hours. Use prescription pain medicine for pain you feel in between 8 hour interval. -No driving while taking narcotic pain medications. In order to drive you should be able to slam on the brakes without significant abdominal pain. 2. Wean from prescription pain medicine first. Do not drive while taking it. 3. Prescription pain medicine can make you constipated. Colace can be taken 1-2 times per day as you need. Make sure to drink at least 8 cups of water per day. 4. Iron supplements can make you constipated. Colace can be taken 1-2 times per day as you need. You can take iron tablets every other day if constipation is too bad. 5. Nothing in the vagina for 6 weeks - no intercourse, douching, tampons. No tub baths or swimming pools 6. Do not lift greater than 15 pounds for 6 weeks, this is the equivalent of 2 gallons of milk. 7. Reasons to return to L&D or call On-Call doctor - fever (greater than 100.4) - heavy vaginal bleeding (soaking through 1 pad in less than 2 hours or passing clots that are egg sized) - vaginal discharge (malodorous and/or purulent) - bleeding or discharge from her incision - severe headaches, leg tenderness/edema, or any other symptoms that warrant immediate medical attention. 8. depression/blues - Normal to feel anxious/overwhelmed for first 2 weeks - Talk to your doctor if: anxiety lasts over 2 weeks, trouble bonding with baby, withdrawing from other family members, thoughts of harming yourself or others Blood pressure and preeclampsia instructions 1. Please take your blood pressure twice daily. 2. Please call if greater than 2 values are higher than: 150 systolic (the top number) or 100 diastolic (the bottom number). 3. Please go to the emergency room or labor and delivery triage if any value is higher than: 160 systolic (the top number) or 110 diastolic (the bottom number). 4. Please call if unrelenting headache (does not go away with rest or Tylenol or ibuprofen), changes in vision (spots, floaters, flashes of light), chest pain, shortness of breath, or right upper quadrant (liver) abdominal pain. Usha Kerr DO [facility] [phone] *Nothing in the Vagina for 6 weeks* *No strenuous activity* *No heavy lifting* *No tub baths until okay's by MD* Patient Instructions: Depression, Hemorrhage, DI for , Surgical Site Infection Print Language: Macedonian Providers Primary Care Provider: Cristi Vega Admit Provider: Jaret Canseco Attending Provider: Jaret Canseco
== END 2024-04-07 14:00 | disposition home or self-care (01) | DRG 788 ==
LOC: OBOUT 16:11 → OB 16:11
PROVIDERS: Obstetrics & Gynecology; Admitting Provider Nurse Practitioner Obstetrics & Gynecology; PCP Nurse Practitioner Family; Visit Provider Nurse Practitioner Obstetrics & Gynecology
PROC: 10D00Z1 Extraction of Products of Conception, Low, Open Approach (ICD-10-PCS; CPT 59514; principal; 2024-04-04 08:15)
DX: O34.211 Maternal care for low transverse scar from previous cesarean delivery (principal); N85.8 Other specified noninflammatory disorders of uterus; Z3A.38 38 weeks gestation of pregnancy; Z37.0 Single live birth; O14.94 Unspecified pre-eclampsia, complicating childbirth; O24.420 Gestational diabetes mellitus in childbirth, diet controlled; O13.4 Gestational [pregnancy-induced] hypertension without significant proteinuria, complicating childbirth
CPT/HCPCS: 36415; 59025; 80048; 80053; 80307; 81001; 82570; 82800; 83735; 84156; 84550; 85025; 85384; 85610; 85730; 86593; 86850; 94761; C9290; G0283; J1171; J1885; J1920; J2405; J2550; J7120; Q0162